=== PATIENT | male | born 1930 | race African-American/Black ===

== ENCOUNTER 2016-05-20 10:03 | Outpatient (CLI) | payer MEDICARE, OTHER ==
[2016-05-20 12:39] LABS: #Eosinphils 0.1 thou/uL (0.0-0.7); #Lymphocytes 2.4 thou/uL (1.20-3.40); #Monocytes 0.5 thou/uL (0.11-0.59); %Basophils 0.6 % (0.0-1.0); %Eosinophils 2.2 % (0.0-10.0); %Lymphocytes 39.4 % (21.0-51.0); %Monocytes 8.6 % (0.0-10.0); %Neutrophils 49.2 % (42.0-75.0); Hemoglobin 13.1 g/dL (14.0-18.0); Mean Corpuscular HGB CONC 31.3 g/dL (32.0-36.0); Mean Corpuscular Volume 95.7 fl (80.0-94.0); Mean Platelet Volume 8.2 fL (7.4-10.4); Platelet Count 206 thou/uL (130-400); RBC Distribution Width 13.4 % (11.5-14.5); Red Blood Cell (RBC) Count 4.36 mill/uL (4.70-6.10)
[2016-05-20 12:52] LABS: ALT (SGPT) 13 U/L (0-55); AST (SGOT) 15 U/L (5-34); Albumin 4.1 g/dL (3.4-4.8); Alkaline Phosphatase 74 U/L (40-150); Anion Gap 13 mmol/L (10-20); BUN (Urea Nitrogen) 17 mg/dL (8.4-25.7); Bilirubin, Total 0.4 mg/dL (0.2-1.2); Calc. Creatinine Clearance 0 mL/min (70-130); Calcium 8.7 mg/dL (7.8-10.44); Carbon Dioxide 25 mmol/L (23-31); Cardiac Risk 3.4 (Less than 4.5); Chloride 109 mmol/L (98-107); Cholesterol 183 mg/dL (< 200 Desired); Estimated GFR-MDRD 67; Globulin 3.1 g/dL (2.4-3.5); Glucose 96 mg/dL (83-110); HDL Cholesterol 54 mg/dL (>60 Neg Risk); LDL Cholesterol, Calculated 116 mg/dL; Potassium 4.3 mmol/L (3.5-5.1); Protein, Total 7.2 g/dL (5.8-8.1); Sodium 143 mmol/L (136-145); Triglycerides 67 mg/dL (Less than 150)
== END 2016-05-20 10:04 | disposition home or self-care (01) ==
LOC: NAVSJIPCSP 10:03
PROVIDERS: ATTEND Internal Medicine
DX: E78.5 Hyperlipidemia, unspecified (principal); Z79.899 Other long term (current) drug therapy
CPT/HCPCS: 36415; 80053; 80061; 85025

== ENCOUNTER 2017-01-24 16:06 | Emergency (ER) | payer MEDICARE, OTHER ==
--- NOTE | 2017-01-24 17:16 | CT ---
CT OF BRAIN PERFORMED WITHOUT CONTRAST ENHANCEMENT: 01/24/17 HISTORY: Head trauma with headache. Generalized ventricular and sulcal prominence. There is decreased attenuation of the periventricular white matter consistent some chronic ischemic white matter change. No signs of intracerebral hemorrha ge or extra-axial fluid collections. The mastoid air cells and visualized sinuses are clear. IMPRESSION: No acute intracranial abnormalities. POS: [facility]
--- NOTE | 2017-01-24 17:17 | RAD ---
THREE VIEWS LEFT SHOULDER 01/24/17 INDICATION: Fall with left shoulder pain. FINDINGS: No acute fracture or subluxation is evident. 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 Visualized left lung is clear. IMPRESSION: No acute osseous abnormality. POS: [facility]
--- NOTE | 2017-01-24 17:20 | CT ---
CT OF THE CERVICAL SPINE WITHOUT CONTRAST 01/24/17 INDICATION: Fall with neck pain. COMPARISON: None. 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 No definite acute fracture or subluxation is evident. The lung apices are clear. The prevertebral soft tissues appear within nor mal limits. There is some calcification seen involving the nimesh alar ligaments at C1-C2. Craniocervic al junction otherwise is within normal limits. IMPRESSION: No acute fracture or subluxation demonstrated. POS: [facility]
== END 2017-01-24 18:17 | disposition home or self-care (01) ==
LOC: NAV ERS 16:06
DX: S00.01XA Abrasion of scalp, initial encounter (principal); I10 Essential (primary) hypertension; W01.0XXA Fall on same level from slipping, tripping and stumbling without subsequent striking against object, initial encounter
CPT/HCPCS: 70450; 72125